=== PATIENT | male | born 1980 | race Caucasian/White ===

== ENCOUNTER 2017-05-16 20:19 | Inpatient (IN) | payer OTHER ==
[~2017-05-16] VITALS: Ht 185.4 cm; Wt 126.0 kg
--- NOTE | ~2017-05-16 | 2DMMODE ---
[facility] [address] [place] [address] 2 D/M-MODE ECHOCARDIOGRAM Name: CHE RAI Room #: 207-P ADM IN M.R.#: [id number] Admission: 05/16/17 Attend Phys: Ted Dickson, Discharge: Date of : 80 Date of Service: 05/17/17 0946 Report #: [id number] THIS REPORT FOR: //name// APPROVED REPORT Study performed: 05/17/2017 08:25:18 EXAM: Comprehensive 2D, Doppler, and color-flow Echocardiogram Patient Location: Bedside Room #: 207 Status: routine BSA: 2.45 HR: 60 bpm BP: 135/98 mmHg Rhythm: NSR Other Information Study Quality: Adequate Indications Syncope 2D Dimensions RVDd: 38.01 mm LVEF(%): 60.35 (>50%) IVSd: 12.90 (7-11mm) LVOT Diam: 24.44 (18-24mm) LVDd: 55.10 mm PWd: 11.82 (7-11mm) LVDs: 37.15 (25-40mm) Aortic Root: 36.83 mm Bowers's LVEF: 60.35 % Volumes Left Atrial Volume (Systole) Single Plane 4CH: 35.27 mL Single Plane 2CH: 52.62 mL LA ESV Index: 19.00 mL/m2 Aortic Valve AoV Peak Edgar.: 1.00 m/s AO Peak Gr.: 4.03 mmHg LVOT Max P.97 mmHg LVOT Max V: 0.86 m/s ERICKA Vmax: 4.03 cm2 Mitral Valve E/A Ratio: 1.4 MV Decel. Time: 203.30 ms [facility] [address] [place] [address] 2 D/M-MODE ECHOCARDIOGRAM Name: CHE RAI [facility] Room #: 207-[facility] IN .R.#: [id number] Admission: 05/16/17 Attend Phys: Ted Dickson, Discharge: Date of : 80 Date of Service: 05/17/17 0946 Report #: [id number] MV E Max Edgar.: 0.63 m/s MV A Edgar.: 0.46 m/s MV PHT: 58.96 ms IVRT: 73.82 ms Pulmonary Valve PV Peak Edgar.: 0.96 m/s PV Peak Gr.: 3.69 mmHg Tricuspid Valve TR Peak Edgar.: 2.21 m/s RAP Estimate: 5.00 mmHg TR Peak Gr.: 19.59 mmHg PA Pressure: 25.00 mmHg Left Ventricle The left ventricle is normal size. There is normal LV segmental wall motion. Mild concentric left ventricular hypertrophy. Left ventricular systolic function is normal. LVEF is 55%. Transmitral Doppler flow pattern suggests impaired LV relaxation. Transmitral Doppler flow pattern suggests pseudonormalization. Right Ventricle The right ventricle is normal size. The right ventricular systolic function is normal. Atria The left atrium size is normal. The right atrium size is normal. Aortic Valve The aortic valve is normal in structure. Trace aortic regurgitation. There is no aortic valvular stenosis. Mitral Valve The mitral valve is normal in structure. Mild mitral regurgitation. Tricuspid Valve The tricuspid valve is normal in structure. Mild tricuspid regurgitation. Estimated PAP is 25mmHg. Pulmonic Valve The pulmonary valve is normal in structure. Trace pulmonic regurgitation. Great Vessels The aortic root is normal in size. IVC is normal in size and [facility] [address] [place] [address] 2 D/M-MODE ECHOCARDIOGRAM Name: CHE RAI Room #: 207-P [facility] IN M.R.#: [id number] Admission: 05/16/17 Attend Phys: Ted Dickson, Discharge: Date of : 80 Date of Service: 05/17/17 0946 Report #: [id number] collapses >50% with inspiration. Pericardium There is no pericardial effusion. <Conclusion> The left ventricle is normal size. LVEF is 55%. The aortic valve is normal in structure. Trace aortic regurgitation. The mitral valve is normal in structure. Mild mitral regurgitation. The tricuspid valve is normal in structure. Mild tricuspid regurgitation. Estimated PAP is 25mmHg. The pulmonary valve is normal in structure. Trace pulmonic regurgitation. There is no pericardial effusion. <ELECTRONICALLY SIGNED> By: Alexander Nicolas MD 05/17/17945 5 5 Alexander Nicolas MD /INF
--- NOTE | ~2017-05-16 | HC ---
[facility] [place] [address] CONSULTATION Name: CHE RAI Room #: 207-P [facility] IN M.R.#: [id number] Admission: 05/16/17 Attend Phys: Ted Dickson MD Discharge: 05/17/17 Date of : 80 Report #: [id number] THIS REPORT FOR: //name// CC: Deandre Ramirez DATE OF SERVICE: 05/17/2017 HISTORY OF PRESENT ILLNESS: This is a 36-year-old male patient who was admitted with two episodes of passing out. The patient indicates that he was walking and basically passed out. It lasted just for a few seconds. It came spontaneously without any trauma and he was out. He did hit his elbow. No tonic clonic activity was noticed and he did not hit his head and there is no well-defined postictal period. REVIEW OF SYSTEMS: Indicates that he follows up with reading aide. 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 He has a history of shingles. He denies any depression or anxiety. He feels back to his baseline and he does not believe that he has any new eye, ENT, respiratory, GI, , musculoskeletal, constitutional, dermatological, hematological, psychiatric, throat, allergic, endocrine symptom associated with the present symptomatology. 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 He follows up with Dr. Dominguez for that. PAST MEDICAL HISTORY: Negative for any seizure-like activity. FAMILY HISTORY: Negative for epilepsy. SOCIAL HISTORY: He drinks occasionally. PHYSICAL EXAMINATION: Indicate he is alert, responsive, able to follow simple and complex command. His speech, concentration, fund of knowledge and memory is at his baseline. Cranial nerve examination 2-12 is unremarkable. He has a good strength, sensation, reflexes and tone in all 4 extremities. He has no cerebellar sign, no papilledema, no carotid bruit, no thyroid mass, no meningeal sign. His pulses are somewhat difficult to feel, but he has no edema, cyanosis or jaundice. His cardiac examinations indicate unremarkable heart sounds and I did not hear any murmur. Respiratory examination showed no rhonchi on either side and there is no respiratory difficulty. His blood pressure is 141/98, respirations 16, pulse is 74, temperature is 97.8. LABORATORY DATA: His white count is 10.4 and his sodium is normal. His TSH is normal. He did have an MRI of the brain, which was reviewed and a CT was reviewed, which is unremarkable. [address] [address] CONSULTATION Name: CHE RAI Room #: [address] [place] [address] IN .R.#: [id number] Admission: 05/16/17 Attend Phys: Ted Dickson MD Discharge: 05/17/17 Date of : 80 Report #: [id number] IMPRESSION: Clinically, it does not look like that the episode is neurological in origin. He had an unremarkable MRI of the brain and he did have some headache, so I will go ahead and check an MRA on him also. I will check an EEG, but I will suggest a Cardiology consult because he needs more working because it looks like it may be cardiological problems including a vasovagal spell. RECOMMENDATIONS: 1. We will go ahead and check an MRA. 2. We will check an EEG. 3. I will suggest cardiology workup Cardiology consult. It may be vasovagal spell or some rhythm abnormality or some other cardiac abnormality for which he may need some workup. This was all discussed with the patient and the patient wants to proceed with it and this workup was set up. Thank you very much for this referral. <ELECTRONICALLY SIGNED> By: Charlie Ramirez MD 05/24/17 1355 1455 1521 Charlie Ramirez MD /nt
--- NOTE | ~2017-05-16 | EKG ---
[address] [place] [address] ELECTROCARDIOGRAM REPORT Name: CHE RAI BARBIE Room #: 207-P ADM IN M.R.#: [id number] Admission: 05/16/17 Attend Phys: Ted Dickson MD Discharge: Date of : 80 Report #: [id number] THIS REPORT FOR: //name// [facility] ED Test Date: 2017-05-16 Test Time: 20:56:29 Pat Name: CHE RAI Department: Room: 207 Gender: M [employer]: LAKEISHA : 1980 Requested By: Branden Hinojosa Order Number: [id number] MD: Waldemar Judd Measurements Intervals [place] Rate: 68 P: 42 OK: 157 QRS: 18 QRSD: 104 T: 22 QT: 378 QTc: 402 Interpretive Statements Sinus rhythm Borderline T wave abnormalities Compared to ECG 06/16/2013 20:15:56 Nonspecific change in the T wave abnormality Electronically Signed On 05-17-2017 7:20:23 CDT by Waldemar Judd [email or web address] <ELECTRONICALLY SIGNED> By: Waldemar Judd MD, [facility] 05/17/17 0720 55 55 Waldemar Judd MD, [facility] /EPI
[~2017-05-16 20:19] MED LIST: ACYCLOVIR 400400 MG PO; ACYCLOVIR 800800 MG PO; CELEXA 10 MG TA10 M1 PO; CLONAZEPAM 1 MG1 M1; CLONAZEPAM 1 MG1 M1 PO; CYCLOBENZAPRINE10 MG; CYCLOBENZAPRINE10 MG PO; FLEXERIL PO; FLUOXETINE HCL10 M1; HYDROCODON-ACE1 EAC5; HYDROCODONE-AP1 EACH PO; LOFIBRA54 MG; MELOXICAM15 MG; METHOTREXATE 22.5 M1; METHOTREXATE 22.5 MG GT; MOBIC15 MG PO; NORCO 10-325 T1 EACH PO; NORCO 5-325 TA1 EACH PO; PERCOCET 5-3251 EACH PO; PREDNISONE 10 M10 MG; PREDNISONE 20 M20 MG PO; TRAZODONE HCL50 MG PO; ULTRAM 50MG TAB50 MG PO
[2017-05-16 20:25] VITALS: BP 141/107
[2017-05-16 20:58] LABS: ABSOLUTE NEUTROPHILS 5.1 thou/uL (1.4-8.2); BASOPHILS 0.7 % (0.0-2.0); HEMATOCRIT 44.9 % (42.0-52.0); HEMOGLOBIN 15.6 gm/dL (14.0-18.0); LYMPHOCYTES 38.5 % (24.0-44.0); MCH 29.8 pg (26.0-34.0); MCHC 34.8 g/dL (28.0-37.0); MCV 85.7 fL (80.0-100.0); MONOCYTES 8.9 % (1.0-8.0); PLATELET COUNT 279 thou/uL (150-400); POLYS 48.9 % (36.0-66.0); RBC 5.23 mil/uL (4.50-6.00); RDW 13.6 % (10.5-14.5); WBC 10.4 thou/uL (4.0-11.0)
[2017-05-16 21:06] LABS: ANION GAP 6 mmol/L (7-16); BUN 13 mg/dL (7-18); CALCIUM 9.8 mg/dL (8.5-10.1); CHLORIDE 105 mmol/L (98-107); CO2 28 mmol/L (21-32); GLUCOSE 96 mg/dL (74-106); SODIUM 139 mmol/L (136-145)
[2017-05-16 21:15] LABS: TROPONIN-I < 0.04 ng/mL (<0.06)
[2017-05-16 23:14] VITALS: BP 141/97
[2017-05-17 04:57] VITALS: BP 147/97
[2017-05-17 07:29] VITALS: BP 135/98
[2017-05-17 11:31] VITALS: BP 141/98
== END 2017-05-17 15:30 | disposition left against medical advice (07) | DRG 312 ==
LOC: ER 20:19 → EROBS 21:58 → 2N 21:58
PROVIDERS: Nurse Practitioner
DX: R55 Syncope and collapse (principal); Z96.643 Presence of artificial hip joint, bilateral; M06.9 Rheumatoid arthritis, unspecified; Z53.21 Procedure and treatment not carried out due to patient leaving prior to being seen by health care provider; Z90.49 Acquired absence of other specified parts of digestive tract; Z79.899 Other long term (current) drug therapy; Z88.0 Allergy status to penicillin
CPT/HCPCS: 10081

== ENCOUNTER 2018-05-04 23:01 | Emergency (ER) | payer OTHER ==
[~2018-05-04] VITALS: Ht 182.9 cm; Wt 113.4 kg
[2018-05-04 23:01] VITALS: BP 181/129
[2018-05-05 00:48] LABS: URINE BILIRUBIN NEGATIVE (Negative); URINE BLOOD 3+ (Negative); URINE CLARITY CLOUDY; URINE COLOR YELLOW; URINE GLUCOSE-RANDOM* NEGATIVE (Negative); URINE KETONES NEGATIVE (Negative); URINE LEUKOCYTES-REFLEX NEGATIVE (Negative); URINE NITRITE-REFLEX NEGATIVE (Negative); URINE PROTEIN (DIPSTICK) TRACE (Negative); URINE UROBILINOGEN 0.2 E.U./dl (0.2-1.0)
[2018-05-05 01:09] LABS: BACTERIA-REFLEX 1-9 Few /HPF (None Seen); CASTS None Seen /LPF (None Seen); CRYSTALS None Seen /LPF (None Seen); MUCUS 0-3 Light strn/LPF (None Seen); SQUAMOUS 0-3 Few /LPF (0-3); URINE RBC >20 Many /HPF (0-2); URINE WBC-REFLEX 0-5 Rare /HPF (0-5)
[2018-05-05 03:31] LABS: AMP/METHAMP Negative (Negative); BARBITURATES Negative (Negative); BENZODIAZEPINES Negative (Negative); COCAINE Negative (Negative); METHADONE Negative (Negative); OPIATES Negative (Negative); PCP Negative (Negative)
== END 2018-05-05 00:50 | disposition left against medical advice (07) ==
LOC: ER 23:01
PROVIDERS: Emergency Medicine; Physician Assistant
DX: Z53.21 Procedure and treatment not carried out due to patient leaving prior to being seen by health care provider (principal)

== ENCOUNTER 2019-09-16 01:17 | Emergency (ER) | payer OTHER ==
[~2019-09-16] VITALS: Ht 182.9 cm; Wt 116.6 kg
[2019-09-16 02:01] LABS: HEMATOCRIT 45.9 % (42.0-52.0); HEMOGLOBIN 15.8 gm/dL (14.0-18.0); MCHC 34.3 g/dL (28.0-37.0); MCV 87.4 fL (80.0-100.0); RBC 5.26 mil/uL (4.50-6.00); RDW 13.7 % (10.5-14.5); WBC 9.5 thou/uL (4.0-11.0)
[2019-09-16 02:13] LABS: CALCIUM 8.6 mg/dL (8.5-10.1); CREATININE 1.2 mg/dL (0.7-1.3); POTASSIUM 3.7 mmol/L (3.5-5.1)
[2019-09-16 02:19] LABS: ALBUMIN 3.5 g/dL (3.4-5.0); TOTAL BILIRUBIN 0.5 mg/dL (0.2-1.0); TOTAL PROTEIN 7.1 g/dL (6.4-8.2)
[2019-09-16 02:49] LABS: URINE BILIRUBIN NEGATIVE (Negative); URINE BLOOD NEGATIVE (Negative); URINE CLARITY CLEAR; URINE COLOR YELLOW; URINE GLUCOSE-RANDOM* NEGATIVE (Negative); URINE KETONES NEGATIVE (Negative); URINE LEUKOCYTES-REFLEX NEGATIVE (Negative); URINE NITRITE-REFLEX NEGATIVE (Negative); URINE PROTEIN (DIPSTICK) NEGATIVE (Negative); URINE SPECIFIC GRAVITY 1.025 (1.005-1.035)
[2019-09-16] MEDS ORDERED: PEPCID20 MG PO (03:22)
[2019-09-16] MEDS ORDERED: ZOFRAN ODT4 MG PO (03:22)
[2019-09-16 03:53] VITALS: BP 110/80
== END 2019-09-16 03:54 | disposition home or self-care (01) ==
LOC: ER 01:17
PROVIDERS: Emergency Medicine
DX: R10.84 Generalized abdominal pain (principal); R11.2 Nausea with vomiting, unspecified; Z90.49 Acquired absence of other specified parts of digestive tract; Z79.899 Other long term (current) drug therapy; Z88.0 Allergy status to penicillin